=== PATIENT | female | born 1935 | race Caucasian/White ===

== ENCOUNTER → 2018-03-12 | Outpatient (CLI) | payer OTHER | LOC: BMCIMAGING 15:20 | PROVIDERS: ATTEND Family Medicine | DX: Z12.31 Encounter for screening mammogram for malignant neoplasm of breast (principal); Z85.3 Personal history of malignant neoplasm of breast; Z90.11 Acquired absence of right breast and nipple ==

== ENCOUNTER 2019-02-23 18:08 | Inpatient (IN) | payer OTHER ==
[2019-02-23] MEDS ORDERED: NS 500 ML IV ONE (18:21)
--- NOTE | 2019-02-23 18:22 | EDPHY ---
H & P Stated Complaint: painful cough for 1 month, chest hurts when coughing Time Seen by Provider: 02/23/19 18:22 HPI/ROS: HPI CHIEF COMPLAINT: Shortness of breath. HISTORY OF PRESENT ILLNESS: Patient is a 83-year-old female, she denies having any significant medical history does not take any daily medications she presents emergency room with shortness of breath, and cough x1 month. She was seen by her primary care doctor in earlier on given a Z-Mahamed for bronchitis. She completed Z-Mahamed, but not improving. She had blood work done by her primary care doctor's showed a positive D-dimer. She was referred to the emergency room for further evaluation. Patient denies any chest pain however when she takes deep breath in she has some discomfort. Also noted to be 82% on room air upon arrival to the emergency room. She is a dry cough on exam. No wheezing. Past Medical History: Breast CA Past Surgical History: mastectomy. Social History: Denies drugs alcohol tobacco Family History: Noncontributory ROS REVIEW OF SYSTEMS: 10 Systems were reviewed and negative with the exception of the elements mentioned in the history of present illness. Exam Constitutional triage nursing summary reviewed, vital signs reviewed, awake/ alert. 82% room air sat. Eyes normal conjunctivae and sclera, EOMI, PERRLA. HENT normal inspection, atraumatic, moist mucus membranes, no epistaxis, neck supple/ no meningismus, no raccoon eyes. Respiratory clear to auscultation bilaterally, normal breath sounds, no respiratory distress, no wheezing. Cardiovascular bronchitic sounding cough on exam, rate normal, regular rhythm, no murmur, no edema, distal pulses normal. Gastrointestinal soft, non-tender, no rebound, no guarding, normal bowel sounds, no distension, no pulsatile mass. Genitourinary no CVA tenderness. Musculoskeletal no midline vertebral tenderness, full range of motion, no calf swelling, no tenderness of extremities, no meningismus, good pulses, neurovascularly intact. Skin pink, warm, & dry, no rash, skin atraumatic. Neurologic awake, alert and oriented x 3, AAOx3, moves all 4 extremities equally, motor intact, sensory intact, CN II-XII intact, normal cerebellar, normal vision, normal speech. Psychiatric normal mood/affect. Heme/Lymph/Immune no lymphadenopathy. Differential Diagnosis: Differential diagnosis includes but is not limited to: ACS, atypical chest pain, pneumothorax, pneumonia, pulmonary embolism, aortic dissection, congestive heart failure, tumor, musculoskeletal pain, esophageal pain, GERD, peptic ulcer disease, pancreatitis Medical Decision Making: Plan for this patient IV establishment IV fluid bolus , DuoNeb breathing treatment, CT angiogram of the chest due to elevated D-dimer from her primary care doctor's office and hypoxia, basic labs, re-evaluate. Re-evaluation: DDIMER 1.49 today at PCP's office. EKG interpretation by me on record in [facility] system. Impression and time of EKG 1842, sinus tach 105 without any signs of acute ischemia. Troponin 0.00 CT angiogram of the chest shows no evidence of pulmonary embolism but shows diffuse ground-glass opacifications concerning for multifocal pneumonia. Plan for this patient with hypoxia and CT scan shows multifocal pneumonia IV antibiotics be given, blood culture sent. Plan for admission to the hospital. Spoke with the hospitalist service Dr. Tapia. Agrees to admit Na 127. Plan for admission for PNA, multi-focal Pna. IV azithro Iv rocephin IV fluids. Blood cultures pending Source: Patient - Personal History Current Tetanus/Diphtheria Vaccine: Unsure Current Tetanus Diphtheria and Acellular Pertussis (TDAP): Unsure - Medical/Surgical History Hx Asthma: No Hx Chronic Respiratory Disease: No Hx Diabetes: No Hx Cardiac Disease: No Hx Renal Disease: No Hx Cirrhosis: No Hx Alcoholism: No Hx HIV/AIDS: No Hx Splenectomy or Spleen Trauma: No Other PMH: Breast cancer - Social History Smoking Status: Never smoked Constitutional: Initial Vital Signs O2 Sat (%) 92 02/23/19 18:10 O2 Delivery Mode Nasal Cannula O2 (L/minute) 2 Allergies/Adverse Reactions: aspirin [Aspirin] Allergy (Verified 02/16/10 16:32) HARD TO BREATHE, GENERALIZED SWELLING Penicillins Allergy (Verified 02/16/10 16:31) Rash Sulfa (Sulfonamide Antibiotics) Allergy (Verified 02/16/10 16:31) WELTS ALL OVER! SEASONAL ALLERGIES Allergy (Mild, Uncoded 02/16/10 16:33) SNEEZING Home Medications: Medication Instructions Recorded Herbals/Supplements -Info Only 1 ea PO DAILY 08/22/15 Medical Decision Making - Data Points Laboratory Results: Laboratory Results 02/23/19 18:45 02/23/19 18:45 Medications Given: Benzonatate (Tessalon Pearles) 100 mg PO TID PRN PRN Reason: Cough,mild Stop: 08/23/19 00:40 Last Admin: 02/24/19 08:09 Dose: 100 mg Enoxaparin Sodium (Lovenox) 40 mg SC DAILY JEIMY Stop: 08/23/19 08:59 Last Admin: 02/24/19 08:24 Dose: 40 mg Magnesium Oxide (Magnesium Oxide) 400 mg PO HS JEIMY Stop: 08/22/19 22:59 Last Admin: 02/24/19 00:12 Dose: 400 mg Prednisone (Prednisone) 20 mg PO DAILY JEIMY Stop: 08/23/19 08:59 Last Admin: 02/24/19 08:09 Dose: 20 mg Discontinued Medications Albuterol/Ipratropium (Duoneb) 3 ml IH EDNOW ONE Stop: 02/23/19 18:30 Last Admin: 02/23/19 18:37 Dose: 3 ml Sodium Chloride (Ns) 500 mls @ 1,000 mls/hr IV EDNOW ONE PRN Reason: Protocol Stop: 02/23/19 18:50 Last Admin: 02/23/19 18:38 Dose: 500 mls Azithromycin 500 mg/ Sodium (Chloride) 255 mls @ 255 mls/hr IV EDNOW ONE PRN Reason: Protocol Stop: 02/23/19 21:27 Last Admin: 02/23/19 21:14 Dose: 255 mls Ceftriaxone Sodium 2 gm/ (Sodium Chloride) 50 mls @ 100 mls/hr IV EDNOW ONE PRN Reason: Protocol Stop: 02/23/19 20:57 Last Admin: 02/23/19 20:48 Dose: 50 mls Point of Care Test Results: Chemistry 02/23/19 18:50 POC Troponin I 0.00 ng/mL ng/mL (0.00-0.08) Departure - Departure Disposition: [facility] Acute Clinical Impression: Hypoxia, Hyponatremia Pneumonia Qualifiers: Pneumonia type: due to unspecified organism Laterality: bilateral Lung location : unspecified part of lung Qualified Code(s): J18.9 - Pneumonia, unspecified organism Condition: Serious
[2019-02-23] MEDS ORDERED: IPRATROPIUM/ALBUTEROL 3 ML DEYVIAL IH ONE (18:29)
[2019-02-23] MEDS ORDERED: IOPAMIDOL (ISOVUE 370) 100 ML BTL IV ONE (18:31)
[2019-02-23 18:55] LABS: PLATELET COUNT 323 10^3/uL (150-400)
[2019-02-23 19:11] LABS: INR 1.11 (0.83-1.16); PROTIME(PATIENT) 13.9 SEC (12.0-15.0)
[2019-02-23] MEDS ORDERED: AZITHROMYCIN IV 500 MG in NS 250 ML IV ONE (20:28)
[2019-02-23] MEDS ORDERED: IPRATROPIUM/ALBUTEROL 3 ML DEYVIAL IH PRN (21:28)
--- NOTE | 2019-02-23 21:48 | GHP ---
[f rep st] HISTORY AND PHYSICAL DATE OF ADMISSION: 02/23/2019 CHIEF COMPLAINT: Shortness of breath and cough. HISTORY OF PRESENT ILLNESS: This is an 83-year-old female [facility] due to increasing shortness of breath and cough for 1 month. She was treated with azithromycin for bronchitis a week ago. The course of the azithromycin finished over t weekend, but she was not better. She was started on a 2nd course of azithromycin, but has still n ot improved. She denies any fevers. She has been short of breath. Her cough is described as nonpro ductive. It hurts to take a deep breath. The patient states that in December of this year she moved fr [facility] to [place]. After the move, which she completed the end of December, she became very tir ed and began coughing. PAST MEDICAL HISTORY: Breast cancer. PAST SURGICAL HISTORY: Right mastectomy. HOME MEDICATIONS: Denies. ALLERGIES: Sulfa and aspirin. Aspirin causes swelling. SOCIAL HISTORY: She now lives in [place] but moved from [facility] in December. She denies any alcoho l, tobacco, or illicit drug use. FAMILY HISTORY: Significant for stroke in her sister and mother. REVIEW OF SYSTEMS: Comprehensive 10-point review of systems was done and is negative except for as m entioned in HPI. PHYSICAL EXAMINATION: VITAL SIGNS: Blood pressure 116/63, pulse 66, respiratory rate 20, O2 saturat ion 92% on 2 L. Was 83% on room air on initial presentation. GENERAL: In no acute distress. HEAD: Normocephalic, atraumatic. EYES: PERRLA. Sclerae anicteric. MOUTH: Moist mucous membranes. NE CK: Supple. No lymphadenopathy. CARDIOVASCULAR: S1, S2. No murmurs, rubs, clicks, gallops. No J VD. No lower extremity edema. PULMONARY: Bilateral wheeze. There is some rhonchi, especially in th e right lower lung field. Slight increased respiratory effort. ABDOMEN: Soft, nontender, nondisten ded. No guarding or rebound tenderness. Normoactive bowel sounds. EXTREMITIES: No clubbing or cya nosis. NEURO: Cranial nerves II-XII grossly intact. No focal motor or sensory deficits. SKIN: Cl ear, no rashes. DIAGNOSTICS: WBC is 12.8, hemoglobin 12.7, hematocrit 36.4, platelets 323, coags unremarkable. Sodi um 127, potassium 4.4, chloride 94, BUN 17, creatinine 0.7, glucose 119. LFTs unremarkable. CT chantal o of the chest was reviewed and was negative for PE. Showed bilateral diffuse alveolar opacities, mo re prominent in the bilateral lower lobes suggesting bilateral diffuse pneumonia. EKG: Sinus tachyc ardia, rate 105 beats per minute. No acute ischemic changes. ASSESSMENT AND PLAN: This is an 83-year-old female presenting with: 1. Acute hypoxemic respiratory failure due to below. 2. Multifocal pneumonia. Possible atypical organism. 3. Hyponatremia. Suspect syndrome of inappropriate antidiuretic hormone secretion given above. The patient appears to be euvolemic. PLAN: 1. Admit to the medical-surgical floor. 2. Will continue ceftriaxone and Zithromax that were started in the emergency department. Will send blood cultures. 3. Consider pulmonology consult given the atypical presentation of this pneumonia that seems to have been ongoing for months. 4. DuoNeb. 5. Start prednisone 20 mg daily. 6. Obtain urine sodium and monitor serum sodium to ensure it is not dropping. 7. The patient requests to be full code status. /[id number]/MODL
[2019-02-24] MEDS: MAGNESIUM OXIDE 400 MG TAB PO SCH ×2 (00:12→20:00)
[2019-02-24] MEDS: BENZONATATE 100 MG CAP PO PRN ×3 (04:06→20:03)
[2019-02-24 05:05] LABS: PLATELET COUNT 297 10^3/uL (150-400)
[2019-02-24] MEDS: predniSONE 20 MG TAB PO SCH (08:09)
[2019-02-24] MEDS: ENOXAPARIN 40 MG/0.4 ML SYR SC SCH (08:24)
[2019-02-24] MEDS ORDERED: Herbals/Supplements -Info Only PO SCH (09:00)
--- NOTE | 2019-02-24 10:52 | PDMN ---
Medical Necessity Medical necessity: [facility] M282 Pneumonia, A-2 days: 83 yo w/ increasing SOB/ cough. 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 Pt completed course of antibx as outpt for s/ sx last week w/ no improvement. Na 127. Elevated WBC. Pt requiring 3L O2 to maintain sat>90%. IV antibx, nebs, steroids for management. Meets [facility] IP criteria for PNA w/ hypoxemia - pt w/o baseline need for supplemental O2 w/ O2 sat less than 90% and failure to respond to antibiotic tx on outpt basis. Hx breast ca w/ R mastectomy.
--- NOTE | 2019-02-24 10:55 | ASMTCMCOM ---
CM Note CM Note Notes: Met with pt, she is admitted to hospital with pneumonia. She is normally very independent, no therapies ordered. Anticipate she will dc home when medically stable. Nurse aid notified CM that pt interested in talking to financial counseling about cost of abx. Pt did not discuss this with CM directly. Email sent to [facility] to reach out to pt. DC Plan: Independent Date Signed: 02/24/2019 10:54 AM Electronically Signed By:Tova Flores RN
--- NOTE | 2019-02-24 12:40 | HOSPPROG ---
Hospitalist Progress Note Assessment/Plan: 83-year-old female presents emergency room complaints of shortness of breath. States she has been feeling well for the last several weeks.. Her primary care physician had placed on antibiotics for 8 days prior to coming to the hospital. 1st encounter. Chart reviewed. # acute hypoxemic respiratory failure -presumably in the setting of pneumonia -continue supplemental oxygen # multifocal pneumonia -could potentially be atypical -respiratory PCR ordered -patient had been on antibiotic therapy for 8 days prior to admission -chest ct demonstrates multifocal pneumonia -continue Rocephin and azithromycin -consider pulmonology consult if patient does not improve # hyponatremia -in the setting of acute infection -likely prerenal -responding to hydration -urine sodium low # disposition -unclear -patient still feels terrible -continues to require supplemental oxygen -continue supportive care in the hospital setting -consider pulmonology or Infectious Disease consult if not improving Subjective: Still feeling sick. No pain. Very tired. Objective: Vital Signs Temp Pulse Resp BP Pulse Ox 37.4 C 77 16 111/66 91 L 02/24/19 12:27 02/24/19 12:27 02/24/19 12:27 02/24/19 12:27 02/24/19 12:27 Laboratory Results 02/24/19 04:30 02/24/19 04:30 02/23/19 02/24/19 02/25/19 05:59 05:59 05:59 Intake Total 900 Balance 900 PT 13.9 SEC (12.0-15.0) 02/23/19 18:45 INR 1.11 (0.83-1.16) 02/23/19 18:45 - Physical Exam Constitutional: appears nourished, not in pain, No obese Eyes: PERRL, anicteric sclera, EOMI Ears, Nose, Mouth, Throat: moist mucous membranes, hearing normal, ears appear normal Cardiovascular: regular rate and rhythym, No JVD, No edema Respiratory: no respiratory distress, no rales or rhonchi, reduced air movement Gastrointestinal: normoactive bowel sounds, No tenderness, No ascites Skin: warm, normal color, No mottled Musculoskeletal: normal joint ROM, no joint effusions, generalized weakness Neurologic: AAOx3 Psychiatric: interacting appropriately, not anxious, not encephalopathic ICD10 Worksheet Patient Problems: Problems Problem Status Onset Malignant tumor of breast Acute Hypoxia Acute Pneumonia Acute Hyponatremia Acute
[2019-02-24] MEDS: AZITHROMYCIN IV 500 MG in D5W 250 ML IV SCH (21:12)
--- NOTE | 2019-02-25 08:40 | HOSPPROG ---
Hospitalist Progress Note Assessment/Plan: 83-year-old female presents emergency room complaints of shortness of breath. States she has been feeling well for the last several weeks.. Her primary care physician had placed on antibiotics for 8 days prior to coming to the hospital. 1st encounter. Chart reviewed. # acute hypoxemic respiratory failure -patient is on 2 L of oxygen -CTA is negative for a PE -she is a persistent cough, possibly from postnasal drip, will try Zyrtec and Flonase -also will do a trial of a PPI to see if this helps -patient is discouraged because she has been feeling poorly for over a month, will as pulmonology for any further input # multifocal pneumonia -blood cultures show no growth -CT of the chest demonstrated multifocal pneumonia -patient is on Rocephin and azithromycin -she was on antibiotic therapy a days prior to this admission -checked a procalcitonin level which is low # history of C diff approximately 10 years ago # constipation -added bowel protocol # hyponatremia -in the setting of acute infection -likely prerenal -responding to hydration -urine sodium low # disposition -pending Subjective: Katlin says she feels 'terrible'. c/o cough, post nasal drip, constipation. Objective: Vital Signs Temp Pulse Resp BP Pulse Ox 36.5 C 71 16 101/59 L 91 L 02/25/19 07:35 02/25/19 07:35 02/25/19 07:35 02/25/19 07:35 02/25/19 07:35 Microbiology 02/24/19 11:10 Respiratory Panel (PCR) - Final Nasal, Sinus - Swab No Organism Detected By Pcr Laboratory Results 02/24/19 04:30 02/24/19 04:30 02/24/19 02/25/19 02/26/19 05:59 05:59 05:59 Intake Total 900 Balance 900 PT 13.9 SEC (12.0-15.0) 02/23/19 18:45 INR 1.11 (0.83-1.16) 02/23/19 18:45 - Physical Exam Constitutional: no apparent distress, appears nourished Eyes: PERRL Ears, Nose, Mouth, Throat: hearing normal Cardiovascular: regular rate and rhythym Respiratory: no respiratory distress, no rales or rhonchi Gastrointestinal: normoactive bowel sounds Skin: warm Neurologic: AAOx3 Psychiatric: interacting appropriately, anxious ICD10 Worksheet Patient Problems: Problems Problem Status Onset Hyponatremia Acute Hypoxia Acute Pneumonia Acute Malignant tumor of breast Acute
[2019-02-25] MEDS: BENZONATATE 100 MG CAP PO PRN ×2 (09:15→20:22)
[2019-02-25] MEDS: predniSONE 20 MG TAB PO SCH (09:15)
[2019-02-25] MEDS: ENOXAPARIN 40 MG/0.4 ML SYR SC SCH (09:15)
[2019-02-25] MEDS ORDERED: MAGNESIUM HYDROXIDE 30 ML UDCUP PO PRN (09:56)
[2019-02-25] MEDS ORDERED: BISACODYL 10 MG SUPP PR PRN (09:56)
[2019-02-25] MEDS ORDERED: LACTULOSE 20 GM/30 ML UDCUP PO PRN (09:56)
[2019-02-25] MEDS: FLUTICASONE NASAL 120 SPRAYS/16 GM MDI EACHNARE SCH (11:22)
[2019-02-25] MEDS: POLYETHYLENE GLYCOL 3350 17 GM PKT PO SCH (11:22)
[2019-02-25] MEDS: SENNOSIDES/DOCUSATE SODIUM TAB PO SCH ×2 (11:26→20:07)
[2019-02-25] MEDS: CETIRIZINE 10 MG TAB PO SCH (11:26)
[2019-02-25] MEDS: PANTOPRAZOLE SODIUM 40 MG TAB PO SCH (11:26)
--- NOTE | 2019-02-25 18:04 | GCON ---
[f rep st] CONSULTATION PULMONARY CONSULTATION DATE OF CONSULTATION: 02/25/2019 REFERRING PHYSICIAN: Loreta Bowden NP REASON FOR REFERRAL: Evaluation and management of pneumonia. HISTORY: The patient is an 83-year-old woman who presented to the emergency department with pneumoni a, cough, and dyspnea. She reports that she was in her usual state of good health when she noticed q uite a bit of fatigue starting in early January. At the time, she was involved in a fairly extensive m ove from [facility] to [facility]. She thinks that around the last week or so of January, she started to develop a cough and was feeling a bit short of breath. She spoke with her primary care doctor, Dr. Yeung, who prescribed azithromycin. She took that and then took a 2nd course. She was still having s ome cough, so he referred her for a chest x-ray on the day of admission 2 days ago. This was read as a pneumonia, so she was told to go to the emergency department. She was admitted and started on cef triaxone and azithromycin. Her fatigue has waxed and waned a bit since hospitalization, but was bett er yesterday. She continues to have the cough, but it is fairly mild. It has been nonproductive all along. There have been no associated fevers or chills. PAST MEDICAL HISTORY: Breast cancer. MEDICATIONS: [id number]. SOCIAL HISTORY: The patient recently moved from [facility] to [facility]. She denies alcohol or tobac co. She does not have any exposure to any unusual animals or animal droppings, or any other usual du st or fumes. FAMILY HISTORY: Unremarkable. REVIEW OF SYSTEMS: A 10-point review of systems adds nothing to the History of Present Illness. PHYSICAL EXAMINATION: GENERAL: The patient is awake and alert. She is in no acute distress. VITAL SIGNS: Blood pressure is 132/96. Heart rate is 79. Oxygen saturations are 90% on room air. HEENT : Normocephalic and atraumatic. No icterus. NECK: No JVD. Trachea is midline. CHEST: She has s ome rales in the bases. She had minimal cough during the interview. ABDOMEN: Soft, nontender. [place] el sounds are present. CARDIAC: Regular rate and rhythm without murmur. EXTREMITIES: No clubbing, cyanosis, or edema. NEURO: The patient is awake and alert. She has no gross motor or sensory defi cits. LABORATORY: A white blood count was 12.8 at admission, 7.5 on repeat. Hemoglobin is 11.5. Chemistr y group is remarkable for sodium of 131, up from 127. Creatinine is 0.5. A TSH is 5.5. A chest x-r ay shows some diffuse mild pneumonia. A CT scan of the chest shows diffuse patchy bilateral alveolar opacities, most prominent in the lower lobes. Images reviewed by me. A PCR panel is negative. A b lood culture is negative. ASSESSMENT: Community-acquired pneumonia. The patient has had symptoms for about 2-3 weeks which pe rsist despite azithromycin. Her chest x-ray shows significant bilateral infiltrates, most consistent with pneumonia. A respiratory panel is negative. There is no history to suggest a hypersensitivity pneumonitis or other causes. She is on appropriate empiric antibiotics for less than 48 hours. RECOMMENDATIONS: Continue current empiric antibiotics. She could probably be discharged home tomorr ow if she is doing well on a single agent such as Levaquin. She could then follow up with me or Dr. Yeung with a chest x-ray in 1-2 weeks. /[id number]/MODL
[2019-02-25] MEDS: MAGNESIUM OXIDE 400 MG TAB PO SCH (20:07)
[2019-02-25] MEDS: AZITHROMYCIN IV 500 MG in D5W 250 ML IV SCH (21:18)
--- NOTE | 2019-02-26 08:23 | HOSPPROG ---
Hospitalist Progress Note Assessment/Plan: 83-year-old female presents emergency room complaints of shortness of breath. States she has been feeling well for the last several weeks.. Her primary care physician had placed on antibiotics for 8 days prior to coming to the hospital. # acute hypoxemic respiratory failure -patient is on 1 L of oxygen -CTA is negative for a PE # multifocal pneumonia -blood cultures show no growth -patient is on Rocephin and azithromycin -she was on antibiotic therapy a days prior to this admission # history of C diff approximately 10 years ago # constipation -added bowel protocol # hyponatremia -improved #elevated TSH -should get rechecked in 6 weeks w PCP # disposition -possibly dc today, told Katlin we could place her on oral abx at or.She wants to see if she is feeling well enough after walking around and getting breakfast. Will need f/u with her PCP or Dr Lu for a f/u chest x ray. Subjective: Katlin is not sure this morning if she is feeling well or not Objective: Vital Signs Temp Pulse Resp BP Pulse Ox 36.7 C 73 18 98/55 L 93 02/25/19 23:27 02/25/19 23:27 02/25/19 23:27 02/25/19 23:27 02/25/19 23:27 Laboratory Results 02/24/19 04:30 02/24/19 04:30 02/25/19 02/26/19 02/27/19 05:59 05:59 05:59 Intake Total 480 Balance 480 PT 13.9 SEC (12.0-15.0) 02/23/19 18:45 INR 1.11 (0.83-1.16) 02/23/19 18:45 - Physical Exam Constitutional: no apparent distress, appears nourished, not in pain Eyes: PERRL Ears, Nose, Mouth, Throat: hearing normal Cardiovascular: regular rate and rhythym, no murmur, rub, or gallop Respiratory: no respiratory distress, other (few rhales but otherwise clear) Skin: warm Neurologic: AAOx3 Psychiatric: interacting appropriately ICD10 Worksheet Patient Problems: Problems Problem Status Onset Hyponatremia Acute Hypoxia Acute Pneumonia Acute Malignant tumor of breast Acute
[2019-02-26] MEDS: SENNOSIDES/DOCUSATE SODIUM TAB PO SCH ×2 (10:11→20:32)
[2019-02-26] MEDS: CETIRIZINE 10 MG TAB PO SCH (10:12)
[2019-02-26] MEDS: PANTOPRAZOLE SODIUM 40 MG TAB PO SCH (10:12)
[2019-02-26] MEDS: BENZONATATE 100 MG CAP PO PRN ×2 (10:12→20:33)
[2019-02-26] MEDS: POLYETHYLENE GLYCOL 3350 17 GM PKT PO SCH (10:12)
[2019-02-26] MEDS: predniSONE 20 MG TAB PO SCH (10:12)
[2019-02-26] MEDS: ENOXAPARIN 40 MG/0.4 ML SYR SC SCH (10:13)
[2019-02-26] MEDS: FLUTICASONE NASAL 120 SPRAYS/16 GM MDI EACHNARE SCH (10:28)
--- NOTE | 2019-02-26 13:50 | ASMTCMCOM ---
THERESA Note CM Note Notes: Met with pt in her room. She would prefer not to go home today but is okay with going home tomorrow. THERESA texted Loreta Bowden NP to advise. When she does discharge, she plans to go to son [id number] Abigail's home to recover before going to her own home. They will drive her from the hospital. No further needs at this time. THERESA D/C plan: Independent to son's home Date Signed: 02/26/2019 01:49 PM Electronically Signed By:Mally Fairbanks
--- NOTE | 2019-02-26 14:00 | PDINTPN ---
Community Support Specialist Progress Note Assessment/Plan: Assessment: CAP: Clinically improved, with decreased oxygen needs, although she feels about the same as she did yesterday. Part of this can be attributed to poor sleep in the hospital. Was on CTX, changed to Levofloxacin. Plan: OK to discharge home +/- O2, complete 7 days of antibiotics. Taper off prednisone in the next few days. Follow-up with me or PCP next week with a CXR. 02/26/19 14:01 02/26/19 14:01 Subjective: Cough is about the same. Feels tired, didn't sleep well last night due to IV issues. Objective: Vital Signs Temp Pulse Resp BP Pulse Ox 36.8 C 86 16 102/65 92 02/26/19 11:53 02/26/19 11:53 02/26/19 11:53 02/26/19 11:53 02/26/19 11:53 Laboratory Results 02/24/19 04:30 02/24/19 04:30 02/25/19 02/26/19 02/27/19 05:59 05:59 05:59 Intake Total 480 Balance 480 PT 13.9 SEC (12.0-15.0) 02/23/19 18:45 INR 1.11 (0.83-1.16) 02/23/19 18:45 Physical Exam - Physical Exam General Appearance: alert EENT: normal ENT inspection Neck: normal inspection Respiratory: lungs clear, normal breath sounds Cardiac/Chest: regular rate, rhythm, No edema Abdomen: normal bowel sounds, non-tender Skin: normal color, warm/dry Extremities: normal inspection Neuro/Psych: alert, normal mood/affect, oriented x 3 ICD10 Worksheet Patient Problems: Problems Problem Status Onset Hyponatremia Acute Hypoxia Acute Pneumonia Acute Malignant tumor of breast Acute
[2019-02-26] MEDS: MAGNESIUM OXIDE 400 MG TAB PO SCH (20:32)
[2019-02-27 07:55] VITALS: BP 129/81
[2019-02-27] MEDS: predniSONE 20 MG TAB PO SCH (08:31)
[2019-02-27] MEDS: SENNOSIDES/DOCUSATE SODIUM TAB PO SCH (08:31)
[2019-02-27] MEDS: PANTOPRAZOLE SODIUM 40 MG TAB PO SCH (08:31)
[2019-02-27] MEDS: POLYETHYLENE GLYCOL 3350 17 GM PKT PO SCH (08:31)
[2019-02-27] MEDS: CETIRIZINE 10 MG TAB PO SCH (08:31)
[2019-02-27] MEDS: ENOXAPARIN 40 MG/0.4 ML SYR SC SCH (08:32)
[2019-02-27] MEDS: FLUTICASONE NASAL 120 SPRAYS/16 GM MDI EACHNARE SCH (08:32)
[2019-02-27] MEDS ORDERED: GUAIFENESIN/DM 10 ML UDCUP PO PRN (08:47)
--- NOTE | 2019-02-27 09:18 | ASDISCHSUM ---
Discharge Information Plan Status:Home with No Needs Medically Cleared to Leave: Discharge Date: D/C Disposition: ADT D/C Disposition:Home, Routine, Self-Care Projected Discharge Date: Transportation at D/C: Discharge Delay Reason: Follow-Up Date: Discharge Slot: Final Diagnosis: Placement Information Patient Contact Information Contact Name:KAROLINA Relationship:Son Address:[facility] [address] [address] City:[place] Alternate Phone: State/Zip Code:[place] [address] Email: Financial Information Financial Class:Medicare Advantage Plans Primary Plan Desc:UNITED [employer] ADVANTAGE PLANS Primary Plan Number:[id number] Secondary Plan Desc: Secondary Plan Number: Assessment Information LACE LACE Length of stay for Answers: 4-6 days current admission Acuity / Level of Answers: Yes Care: Did the patient have an inpatient admission? Comorbidities - select Answers: Other Notes: Hx of breast cancer all that apply # of Emergency department Answers: 1-2 visits in the last 6 months Score: 9 Date Signed: 02/27/2019 09:17 AM Electronically Signed By:Mally Fairbanks [facility] Progress Note CM Note CM Note Notes: Met with pt, she is admitted to hospital with pneumonia. She is normally very independent, no therapies ordered. Anticipate she will dc home when medically stable. Nurse aid notified CM that pt interested in talking to financial counseling about cost of abx. Pt did not discuss this with CM directly. Email sent to to reach out to pt. DC Plan: Independent Date Signed: 02/24/2019 10:54 AM Electronically Signed By:Tova Flores RN [facility] THERESA Progress Note CM Note THERESA Note Notes: Met with pt in her room. She would prefer not to go home today but is okay with going home tomorrow. THERESA texted Loreta Bowden NP to advise. When she does discharge, she plans to go to son Yusuf/[id number]-ekm Abigail's home to recover before going to her own home. They will drive her from the hospital. No further needs at this time. THERESA D/C plan: Independent to son's home Date Signed: 02/26/2019 01:49 PM Electronically Signed By:Mally Fairbanks Intervention Information Intervention Type:*Incorrect Registration Date of Service:02/24/2019 09:33 AM Patient Type:Observation Staff Member:Deanna Ambrosio Hours: Discipline: Severity: Comment:
--- NOTE | 2019-02-27 09:20 | ASMTDCNOTE ---
Case Management Discharge Discharge Order Complete? Answers: Yes Patient to Obtain Answers: Independently Medications Transportation Arranged Answers: Family/Friends Family Notified Answers: Yes Notes: Pt called her son for a ride Discharge Comments Notes: Pt is being discharged independent to home today. Her son Yusuf or [id number] Abigail will pick her up and take her to their home to finish recovering before she returns to her own home. No further needs identified at this time. Date Signed: 02/27/2019 09:20 AM Electronically Signed By:Mally Fairbanks
[2019-02-27] MEDS: BENZONATATE 100 MG CAP PO PRN (10:55)
--- NOTE | 2019-02-27 17:41 | GDS ---
[f rep st] DISCHARGE SUMMARY DISCHARGE DIAGNOSES: 1. Atypical pneumonia. 2. Acute respiratory failure. HISTORY: The patient is an 83-year-old female, appearing much younger than her stated age, who has b een having a few weeks of cough. She took a couple courses of outpatient azithromycin and failed to improve so presented to the emergency room. D-dimer was positive, so she had a CT angiogram of the c hest and was negative for PE. It did show significant bilateral infiltrates consistent with pneumoni a. Pulmonary Medicine was consulted, as there was concern for a possible noninfectious etiology give n the prolonged time course and atypical disease course. Dr. Lu saw her and did think this was an atypical infection and recommended switching her on to Levaquin. She was also empirically started o n prednisone which I will rapidly taper off. She should have a followup chest x-ray in 1 to 2 weeks post discharge. DISCHARGE MEDICATIONS: Please see computerized record for full detailed list. New medications: 1. Levaquin 750 mg every other day to complete 7 days of therapy. 2. Prednisone 20 mg p.o. daily for 2 more days then off. ADDITIONAL DISCHARGE INSTRUCTIONS: Follow up chest x-ray with Dr. Yeung or Dr. Lu in 1 to 2 weeks. Greater 30 minutes' time spent arranging this discharge. Patient was seen and examined by me on the day of discharge. /[id number]/MODL
== END 2019-02-27 13:15 | disposition home or self-care (01) | DRG 193 ==
LOC: OBSVTOIN 21:29 → F3E 22:22
PROVIDERS: ADMIT Family Medicine; ATTEND Internal Medicine
DX: J18.9 Pneumonia, unspecified organism (principal); J96.01 Acute respiratory failure with hypoxia; E87.1 Hypo-osmolality and hyponatremia; Z85.3 Personal history of malignant neoplasm of breast; Z90.11 Acquired absence of right breast and nipple
CPT/HCPCS: 84484-ER; 92610-GN; J0456; J0696; J1650; J7512; Q9967

== ENCOUNTER → 2019-02-23 | Outpatient (CLI) | payer OTHER ==
[~2019-02-23] MED LIST: IOPAMIDOL (ISOVUE 370) 100 ML BTL IV ONE
== END ==
LOC: FIMAGING 15:46
PROVIDERS: ATTEND Family Medicine
DX: R05 Cough (principal); Z85.3 Personal history of malignant neoplasm of breast
CPT/HCPCS: 71046; Q9967

== ENCOUNTER 2019-03-04 22:41 | Inpatient (IN) | payer OTHER | END 2019-03-08 16:41 | LOC: F3E 03-05 00:16 ==

== ENCOUNTER 2019-03-16 19:49 | Inpatient (IN) | payer OTHER ==
--- NOTE | 2019-03-16 19:52 | EDPHY ---
HPI/HX/ROS/PE/MDM Narrative: CHIEF COMPLAINT: Weakness HPI: This patient is an 83-year-old female with past medical history including breast cancer, anemia, SIADH. She has two recent admissions for pneumonia, discharged 03/08/19 to [facility] for rehabilitation. Her antibiotics and steroid therapies have been discontinued as her lung disease was ultimately thought to be an inflammatory rather than an infectious process. She was to follow up with pulmonology and infectious disease. Today, she returned home from rehab, but about 4-5 hours after getting home, she began feeling poorly with weakness and a productive cough. She arrives via EMS for further evaluation. Per EMS report, her SpO2 was 86% on room air. On my exam, the patient begins by saying "Do I have to tell the story again?" She states that she feels generally weak with a worsened cough. She denies chest pain or fever. She denies fall or injury. REVIEW OF SYSTEMS: A comprehensive 10 system review of systems is otherwise negative aside from elements mentioned in the history of present illness and medical decision making. PMH: Breast cancer s/p mastectomy. Anemia. SIADH. Pneumonia. SOCIAL HISTORY: Lives in [place]. Retired. Discharged today from [facility] rehabilitation. PHYSICAL EXAM: General:Patient is alert, in no acute distress. ENT:Eyes are normal to inspection. ENT inspection normal. Neck: Normal inspection. Full range of motion. Respiratory:No respiratory distress. Breath sounds normal bilaterally. Cardiovascular: Regular rate and rhythm. Strong peripheral pulses. Normal cap refill. Abdomen:The abdomen is nontender to palpation. There are no peritoneal signs. There are normal bowel sounds. Back: Normal to inspection. No tenderness to palpation. Skin: Normal color. No rash. Warm and dry. Extremities: Normal appearance. Full range of motion. Neuro: Oriented x3. Normal motor function. Normal sensory function. ED Course: 83 y/o female presents with weakness and productive cough. She has two recent admissions for pneumonia vs. possible interstitial fibrosis, discharged home from rehab today. Plan for chest x-ray, labs including CBC, chemistries. Reviewed laboratory studies. These are notable for elevated WBC of 12,000 and hyponatremia, sodium 130. CXR today is largely unchanged from prior. 21:40 SpO2 84% on room air 21:[address] Parsons, hospitalist. She accepts admission for hypoxemia. - Data Points Imaging Results: Imaging Impressions Chest X-Ray 03/16/19 19:59 Impression: Similar appearing patchy bilateral airspace opacities and coarse interstitial markings. Imaging: I viewed and interpreted images myself Laboratory Results: Laboratory Results 03/16/19 21:00 03/16/19 21:00 03/16/19 03/16/19 21:00 21:00 WBC 12.45 10^3/uL H 10^3/uL (3.80-9.50) RBC 4.13 10^6/uL L 10^6/uL (4.18-5.33) Hgb 12.6 g/dL g/dL (12.6-16.3) Hct 37.1 % L % (38.0-47.0) MCV 89.8 fL fL (81.5-99.8) MCH 30.5 pg pg (27.9-34.1) MCHC 34.0 g/dL g/dL (32.4-36.7) RDW 14.1 % % (11.5-15.2) Plt Count 244 10^3/uL 10^3/uL (150-400) MPV 8.3 fL L fL (8.7-11.7) Neut % (Auto) 93.9 % H % (39.3-74.2) Lymph % (Auto) 4.0 % L % (15.0-45.0) [place] % (Auto) 1.0 % L % (4.5-13.0) Eos % (Auto) 0.6 % % (0.6-7.6) Baso % (Auto) 0.1 % L % (0.3-1.7) Nucleat RBC Rel Count 0.0 % % (0.0-0.2) Absolute Neuts (auto) 11.69 10^3/uL H 10^3/uL (1.70-6.50) Absolute Lymphs (auto) 0.50 10^3/uL L 10^3/uL (1.00-3.00) Absolute Monos (auto) 0.12 10^3/uL L 10^3/uL (0.30-0.80) Absolute Eos (auto) 0.07 10^3/uL 10^3/uL (0.03-0.40) Absolute Basos (auto) 0.01 10^3/uL L 10^3/uL (0.02-0.10) Absolute Nucleated RBC 0.00 10^3/uL 10^3/uL (0-0.01) Immature Gran % 0.4 % % (0.0-1.1) Immature Gran # 0.05 10^3/uL 10^3/uL (0.00-0.10) RBC/WBC/PLT Morphology TNP Platelet Estimate TNP Sodium 130 mEq/L L mEq/L (135-145) Potassium 4.3 mEq/L mEq/L (3.5-5.2) Chloride 101 mEq/L mEq/L (97-110) Carbon Dioxide 21 mEq/l L mEq/l (22-31) Anion Gap 8 mEq/L mEq/L (6-14) BUN 12 mg/dL mg/dL (7-23) Creatinine 0.6 mg/dL mg/dL (0.6-1.0) Estimated GFR > 60 Glucose 90 mg/dL mg/dL (70-100) Calcium 9.0 mg/dL mg/dL (8.5-10.4) General Initial Vital Signs: Initial Vital Signs Temperature (C) 36.8 C 03/16/19 19:55 Heart Rate 88 03/16/19 19:55 Respiratory Rate 16 03/16/19 19:55 Blood Pressure 115/64 03/16/19 19:55 O2 Sat (%) 83 L 03/16/19 19:55 O2 Delivery Mode Nasal Cannula O2 (L/minute) 3 Allergies/Adverse Reactions: aspirin [Aspirin] Allergy (Verified 03/16/19 19:58) HARD TO BREATHE, GENERALIZED SWELLING Penicillins Allergy (Verified 03/16/19 19:58) Rash DECADES AGO Sulfa (Sulfonamide Antibiotics) Allergy (Verified 03/16/19 19:58) WELTS ALL OVER! 20 yrs ago SEASONAL ALLERGIES Allergy (Mild, Uncoded 03/16/19 19:58) SNEEZING Home Medications: Medication Instructions Recorded Herbals/Supplements -Info Only 1 ea PO DAILY 08/22/15 Acetaminophen [Tylenol 325mg (*)] 650 mg PO Q4HRS PRN tab 03/08/19 Polyethylene Glycol 3350 [Miralax 17 gm PO DAILY pkt 05/20/19 17 gm (*)] Sennosides/Docusate Sodium 1 - 2 tab PO BID tab 03/08/19 [Senokot-S] Departure - Departure Referrals: ADRY POWERS [Medical Doctor] - As per Instructions Report Scribed for: Hugh Vu Report Scribed by: Clarice Leon Date of Report: 03/16/19 Time of Report: 21:31 Physician Review and Approval Statement: Portions of this note were transcribed by an ED scribe. I personally performed the history, physical exam, and medical decision making; and confirm the accuracy of the information in the transcribed note.
[2019-03-16 21:13] LABS: PLATELET COUNT 244 10^3/uL (150-400)
[2019-03-16] MEDS ORDERED: ONDANSETRON DISINTEGRATING 4 MG TAB PO PRN (22:20)
[2019-03-16] MEDS ORDERED: ACETAMINOPHEN 325 MG TAB PO PRN (22:20)
[2019-03-16] MEDS ORDERED: ONDANSETRON 4 MG/2 ML VIAL IVP PRN (22:20)
[2019-03-16] MEDS ORDERED: ALBUTEROL 3 ML DEYVIAL IH PRN (22:20)
--- NOTE | 2019-03-16 22:48 | PDGENHP ---
History and Physical - Chief Complaint Shortness of breath cough - History of Present Illness Source-patient provides a limited amount of history despite prompting. She is a little agitated and upset that she has to provide history. Patient is familiar to me from her last admission earlier this month. EMR was reviewed and case discussed with accepting hospitalist. HPI - this is an 83-year-old female past medical history significant for remote breast cancer status post mastectomy, anemia, SIADH and more recently multiple hospitalizations for was initially thought to be a pneumonia and associated hypoxia. Patient did not have significant improvement in her respiratory symptoms despite multiple courses of antibiotics. During her 2nd hospitalization infectious Disease and pulmonology were consulted. It was suspected that patient had a inflammatory process more so than it infectious process. She had respiratory PCR and sputum cultures that were all negative including for mycobacterium. It was recommended that patient not be given any steroids or antibiotics and to be monitored. She subsequently discharged to [facility]. Per patient's report she was not continued on any oxygen while at [facility]. She was apparently doing quite well was discharged earlier today. She returned home to her [facility] where she lives with her son. Who she was there for approximately 4-5 hours and reports that she continued to feel increasingly weak with worsening productive cough. Currently patient is complaining of some low back aching. Patient denies any complaints of aspiration or choking. History Information - Allergies/Home Medication List Allergies/Adverse Reactions: aspirin [Aspirin] Allergy (Verified 03/16/19 19:58) HARD TO BREATHE, GENERALIZED SWELLING Penicillins Allergy (Verified 03/16/19 19:58) Rash DECADES AGO Sulfa (Sulfonamide Antibiotics) Allergy (Verified 03/16/19 19:58) WELTS ALL OVER! 20 yrs ago SEASONAL ALLERGIES Allergy (Mild, Uncoded 03/16/19 19:58) SNEEZING Home Medications: Herbals/Supplements -Info Only 1 ea PO DAILY 08/22/15 [Last Taken 08/25/15] I have personally reviewed and updated: family history, medical history, social history, surgical history - Past Medical History Additional medical history: Breast cancer status post mastectomy. Patient did not receive any chemotherapy or radiation therapy. Anemia, SIADH. - Surgical History Additional surgical history: Right mastectomy - Family History Additional family history: Mother and sister with history CVA. No known lung disease. - Social History Smoking Status: Never smoked Alcohol Use: None Drug Use: None Additional social history: Patient currently lives with her son and [place]. She denies any requirement for walker or cane at home. She does not have any oxygen at home. Cor status-DNR DNI. Review of Systems Review of Systems: ROS: 10pt was reviewed & negative except for what was stated in HPI & below Constitutional: Reports: malaise, weakness (Generalized). Denies: chills, fever EENMT: Reports: no symptoms Cardiac: Reports: no symptoms Respiratory: Reports: cough, shortness of breath Gastrointestinal: Reports: no symptoms Genitourinary: Reports: no symptoms. Denies: dysuria, hematuria Muscolosketal: Reports: back pain Skin: Reports: no symptoms Neurological: Reports: no symptoms, other (Light sensitivity) Hematologic/Lymphatic: Reports: anemia Physical Exam Physical Exam: Selected Entries 03/16/19 19:55 Blood Pressure Automatic Method Heart Rate 88 Respiratory 16 Rate O2 Sat (%) 83 L Temperature (C) 36.8 C Blood Pressure 115/64 Mean Arterial 81 Pressure (MAP) O2 Delivery Room Air Mode Temperature Oral Source Temp Pulse Resp BP Pulse Ox 36.8 C 90 18 120/57 L 94 03/16/19 19:55 03/16/19 22:32 03/16/19 22:32 03/16/19 22:32 03/16/19 22:32 O2 (L/minute) 3 Constitutional: no apparent distress, chronically ill appearing, other (NAD. Patient is lying quietly in bed when I enter the room. Soon as I wake her up she starts intermittently complaining of multiple dissatisfactiond including feeling thirsty, wanting her shoes off, wantng to sit up, wanting to go upstairs to her room. ) Eyes: anicteric sclera, other (Limited ocular exam is patient refuses to keep her eyes on covered with the light on.), No scleral injection Ears, Nose, Mouth, Throat: other (No nasal discharge.), No poor dentition, No dry mucous membranes Cardiovascular: regular rate and rhythym, no murmur, rub, or gallop, pulses symmetric bilaterally, No edema Peripheral Pulses: 2+: dorsalis-pedis (R), dorsalis-pedis (L) Respiratory: no respiratory distress, no rales or rhonchi, reduced air movement (Diminished air movement decreased inspiratory effort.), inspiratory crackles ( Bibasilar inspiratory crackles), No expiratory wheeze Gastrointestinal: normoactive bowel sounds, soft, non-tender abdomen, no palpable masses, No distension Genitourinary: no bladder tenderness, No park in urethra Skin: warm, normal color, no rashes or abrasions Musculoskeletal: generalized weakness (Generalized deconditioning. No focal deficits. Patient is able to sit up independently roll in the sidewall extremities.) Neurologic: AAOx3, other (Grossly nonfocal but limited exam due to patient's cooperation.), No facial droop Psychiatric: anxious, agitated, No suicidal ideation, No poor insight, No poor judgement, No poor memory Lab Data & Imaging Review 03/16/19 21:00 03/16/19 21:00 WBC 12.45 10^3/uL (3.80-9.50) H 03/16/19 21:00 RBC 4.13 10^6/uL (4.18-5.33) L 03/16/19 21:00 Hgb 12.6 g/dL (12.6-16.3) 03/16/19 21:00 Hct 37.1 % (38.0-47.0) L 03/16/19 21:00 MCV 89.8 fL (81.5-99.8) 03/16/19 21:00 MCH 30.5 pg (27.9-34.1) 03/16/19 21:00 MCHC 34.0 g/dL (32.4-36.7) 03/16/19 21:00 RDW 14.1 % (11.5-15.2) 03/16/19 21:00 Plt Count 244 10^3/uL (150-400) 03/16/19 21:00 MPV 8.3 fL (8.7-11.7) L 03/16/19 21:00 Neut % (Auto) 93.9 % (39.3-74.2) H 03/16/19 21:00 Lymph % (Auto) 4.0 % (15.0-45.0) L 03/16/19 21:00 [place] % (Auto) 1.0 % (4.5-13.0) L 03/16/19 21:00 Eos % (Auto) 0.6 % (0.6-7.6) 03/16/19 21:00 Baso % (Auto) 0.1 % (0.3-1.7) L 03/16/19 21:00 Nucleat RBC Rel Count 0.0 % (0.0-0.2) 03/16/19 21:00 Absolute Neuts (auto) 11.69 10^3/uL (1.70-6.50) H 03/16/19 21:00 Absolute Lymphs (auto) 0.50 10^3/uL (1.00-3.00) L 03/16/19 21:00 Absolute Monos (auto) 0.12 10^3/uL (0.30-0.80) L 03/16/19 21:00 Absolute Eos (auto) 0.07 10^3/uL (0.03-0.40) 03/16/19 21:00 Absolute Basos (auto) 0.01 10^3/uL (0.02-0.10) L 03/16/19 21:00 Absolute Nucleated RBC 0.00 10^3/uL (0-0.01) 03/16/19 21:00 Immature Gran % 0.4 % (0.0-1.1) 03/16/19 21:00 Immature Gran # 0.05 10^3/uL (0.00-0.10) 03/16/19 21:00 RBC/WBC/PLT Morphology TNP 03/16/19 21:00 Platelet Estimate TNP 03/16/19 21:00 Sodium 130 mEq/L (135-145) L 03/16/19 21:00 Potassium 4.3 mEq/L (3.5-5.2) 03/16/19 21:00 Chloride 101 mEq/L (97-110) 03/16/19 21:00 Carbon Dioxide 21 mEq/l (22-31) L 03/16/19 21:00 Anion Gap 8 mEq/L (6-14) 03/16/19 21:00 BUN 12 mg/dL (7-23) 03/16/19 21:00 Creatinine 0.6 mg/dL (0.6-1.0) 03/16/19 21:00 Estimated GFR > 60 03/16/19 21:00 Glucose 90 mg/dL (70-100) 03/16/19 21:00 Calcium 9.0 mg/dL (8.5-10.4) 03/16/19 21:00 Imaging Review: Chest 2 View History: cough. Comparison: March 06, 2019, March 04, 2019. Findings: Patchy airspace opacities are seen which appear unchanged when compared to the prior study. Coarsened interstitial markings are also seen. The cardiac silhouette and pulmonary vascularity are within normal limits. Degenerative changes of the thoracic spine are evident. Impression: Similar appearing patchy bilateral airspace opacities and coarse interstitial markings. Dictated By: Peter Maldonado MD Visualized and Interpreted Chest x-ray results: Yes Assessment & Plan Assessment: This is an 83-year-old female past medical history significant for remote breast cancer status post mastectomy, anemia, SIADH and more recently multiple hospitalizations for was initially thought to be a pneumonia and associated hypoxia. Patient did not have significant improvement in her respiratory symptoms despite multiple courses of antibiotics. hypoxia - patient reports she was not discharged on any oxygen. She also notes that at the retirement she did not receive any supplemental oxygen recently before returning home in [place]. O2 sats have significantly improved with 3-4 L supplemental oxygen. Hold off on any steroids or antibiotics at this time as cxr appears relatively unchanged from last hospital stay. Patient with a tachycardia or complaints of chest pain. Lower suspicion for PE. Prophylactic Lovenox and SCDs ordered. inflammatory lung disease vs pna - chest x-ray remains unchanged. Patient is afebrile. She has a mild leukocytosis. Respiratory status improved with supplemental oxygen will which will continue overnight. Hold additional antibiotics. Additional discussion with pulmonology in the morning. SIADH - Sodium 130 close to baseline. hold on IVF. patient is requesting water. will monitor am bmp. chronic anemia - with near normal hh at this time. monitor cbc. continue with ppx lovenox. hx breast ca - s/p mastectomy FEN - SLIV. diet as tolerated. monitor electrolytes with bmp. PPX - SCDs. lovenox. COR - DNR/DNI. Dispo - patient admitted observation status on med surge for continued oxygen supplementation. Pending reassessment in the morning and ability to pain oxygen for home vs return to [facility] possibility for discharge less than 2 midnight stay.
[2019-03-17] MEDS ORDERED: NS 1,000 ML IV SCH (05:30)
[2019-03-17 08:11] LABS: PLATELET COUNT 211 10^3/uL (150-400)
[2019-03-17] MEDS: ENOXAPARIN 40 MG/0.4 ML SYR SC SCH (08:39)
--- NOTE | 2019-03-17 13:33 | HOSPPROG ---
Hospitalist Progress Note Assessment/Plan: This is an 83-year-old female past medical history significant for remote breast cancer status post mastectomy, anemia, SIADH and more recently multiple hospitalizations for was initially thought to be a pneumonia and associated hypoxia. First encounter, chart reviewed. *hypoxia w recurrent cough -likely r/t pneumonitis and ILD -will get ST to see to do a swallow evaluation -appreciate ID's involvement -Pulmonology to see her-saw her on last admission -CM spoke with [facility] and on dc from there she was stable on room air *inflammatory lung disease vs pna - chest x-ray remains unchanged - mild leukocytosis - will hold abx and steroids *SIADH - Sodium 131 *hypotension -bp is low but she is asymptomatic *chronic anemia -stable *hx breast ca - s/p mastectomy *underweight w a BMI of 19.6 -concerned she isn't eating much, ate a yogurt w banana and half a scrambled egg when I evaluated her at 15:00 -will ask dietary to see, get a calorie count *dvt prophylaxis plan: ID and Pulmonology to see. Concerned she isn't eating and may have some anxiety.CM to get dc summary from [facility]. She will require another midnight stay for further evaluation, her blood pressure is low, and she is very concerned her cough returned. Subjective: Katlin said she was fine at and then she was only able to last one day at home. Objective: Vital Signs Temp Pulse Resp BP Pulse Ox 36.4 C 89 16 95/46 L 90 L 03/17/19 11:03 03/17/19 11:03 03/17/19 11:03 03/17/19 11:03 03/17/19 11:03 Laboratory Results 03/17/19 08:05 03/17/19 08:05 03/16/19 03/17/19 03/18/19 05:59 05:59 05:59 Intake Total 450 Output Total 125 150 Balance 325 -150 - Physical Exam Constitutional: no apparent distress, other (thin) Eyes: PERRL Ears, Nose, Mouth, Throat: hard of hearing Cardiovascular: regular rate and rhythym Respiratory: no respiratory distress, rhonchi (bases) Skin: warm Musculoskeletal: generalized weakness Neurologic: AAOx3 Psychiatric: interacting appropriately ICD10 Worksheet Patient Problems: Problems Problem Status Onset Adult failure to thrive syndrome Acute Cough Acute Generalized weakness Acute Hyponatremia Acute Hypoxia Acute Malignant tumor of breast Acute Pneumonia Acute
--- NOTE | 2019-03-17 14:12 | PDCONSULT ---
[employer] Supervisor Note: Infectious Diseases Consult Note Impression: 83-year-old woman with hypoxia and objective findings of bronchiectasis in the lower lobes and probable pulmonary fibrosis. Overall her chest CT between 02/23 and 03/06 shows considerable improvement although her chest x-ray is unchanged which likely reflects underlying chronic interstitial lung disease. Do not suspect a new acute pulmonary infection resulting in rehospitalization. His likely that she has chronic lung disease and has reached her threshold of compensation and may require oxygen supplementation going forward. Continue to observe without additional antibiotics. Extensive evaluation for possible infectious causes of her lung disease on previous admission remain negative. It is feasible that she has pulmonary TAYLOR infection with 9 days of incubation in adequate to call that a negative result; typically TAYLOR takes 14 or more days to grow in the lab. 1. Hypoxia, likely secondary to interstitial lung disease with bronchiectasis 2. Leukocytosis, unclear cause but does not have an infectious syndrome Plan: 1. Continue to observe off antibiotics 2. Swallow study to evaluate for possible component of aspiration resulting in acute changes 3. Agree with pulmonary re-evaluation Edvin Carballo MD Infectious Diseases Chief Complaint: Generalized body aches Requesting Provider: Loreta Bowden Reason for Referral: Consultation was requested by Loreta Bowden regarding antimicrobial management. HPI: 83-year-old woman presented to the hospital approximately 1 day after being discharged from rehab where she was improving after her recent hospitalization. She was not requiring supplemental oxygen at rehab and was progressing quite well. Upon returning to her home she developed generalized body aches which she describes as "flu-like" but she does not recognize symptoms of dyspnea or worsened cough upon returning home. Objective measurement reveals low oxygen saturations prompting admission. She notes no fevers, chills, or night sweats. She states that she returned home from rehab and by the early evening felt that she could not tolerate the worsening generalized body aches that she associates with a flu-like syndrome. She does state that while at rehab she slept in a bed with the head of the bed elevated and when she returned home she took a nap and laid flat for the nap. She notes no arthralgias or rash. Reviewed patient medical records in [facility], [facility] and [place] [facility] ([facility]). Past Medical/Surgical History: Bronchiectasis, possible pulmonary fibrosis Social History: Does not use tobacco products; Does not consume marijuana products; Drinks alcohol socially; Does not use any other drugs currently or in the past Family History: No family members with recurrent infections Allergies: Sulfa; penicillins Medications: Reviewed in medical record. ROS: 10 organ systems reviewed; pertinent positives and negatives listed in the HPI, all other organ systems negative. Physical Exam: VS: Reviewed Gen: No acute distress; Breathing comfortably with supplemental oxygen; Able to speak in complete sentences Eyes: No conjunctival injection; No scleral icterus HENT: No gross deformities Neck: No limitation in range of motion Pulm: Audible inspiratory sounds to the bases bilaterally; No wheeze, rhonchi, or rales CV: Normal S1 and S2; Regular rate and rhythm; No murmurs, rubs, or gallops; No lower extremity edema Abd: Not distended; Normo-active bowel sounds; Soft; Non-tender Skin: A full skin exam including exposed bilateral upper extremities, bilateral lower extremities to the knees, face, neck, abdomen, chest, and back performed; Skin intact, warm, with no rash MSK: Joints without erythema or edema; No gross limitation in range of motion Ext: No clubbing or cyanosis Neuro: Awake and alert Psych: Normal mood and blunted affect Labs/Imaging: All microbiology testing (culture and non-culture) reviewed in the medical record. Personally reviewed and interpreted the images of the following radiographs: Chest x-ray from 03/16 showing essentially unchanged interstitial lung markings. Discussed treatment/diagnostic testing and testing results with admitting provider(s). Ongoing monitoring for antimicrobial toxicity with: CBC, BMP, interval historical information, and interval physical exam. Paak-gw-acbm time with patient: 65 minutes with >50% of ffbq-ob-hezq time spent in counseling, patient education, and coordinating care. Counseling provided included the microbiology of pneumonia of bacterial, viral, and fungal etiologies, aspiration, bronchiectasis, pulmonary TAYLOR infection, expected time to resolution, natural history without treatment, and side effects of treatment.
--- NOTE | 2019-03-17 16:29 | ASMTCMCOM ---
CM Note CM Note Notes: Chart review conducted for dc planning purposes and case discussed with hospitalist. Pt was recently admitted to [facility] and discharged to [facility] where according to [facility] she was not requiring oxygen, but was still continuing with nebs. Pt discharged yesterday with [facility] PT who never met with her because she was back in [facility] ED the night of her discharge from SNF with hypoxia. Pt may need home O2 going forward. Pt's contact at [facility] is Melinda ([phone]). PT and OT are still pending on pt. Referral sent to [facility] as pt had already agreed to their services. CM to follow. D/C Plan: [facility] Date Signed: 03/17/2019 04:28 PM Electronically Signed By:Tracy Onofre RN
--- NOTE | 2019-03-17 17:26 | PDCONSULT ---
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 Degree of traction bronchiectasis suggest a level of chronicity longer than reported symptoms. I suspect this process has been going on for months to years and her lung function has finally declined to the point where she is symptomatic. Bronchoscopy with BAL and transbronchial biopsies may be helpful in determining whether this is a cellular NSIP, eosinophilic pneumonia but yield is significantly less for other types of lung disease. Given advanced age and risk benefit conversation patient has elected to proceed with bronchoscopy as opposed to video-assisted thoracic surgery with wedge resection biopsies. # acute on chronic hypoxemic respiratory failure # undifferentiated inflammatory fibrotic lung disease. See above # dyspnea exertion and shortness of breath PLAN # bronchoscopy with BAL and transbronchial biopsies tomorrow # NPO after midnight # limited autoimmune workup including repeat RF factor, anti CCP. DONNA screen last visit was negative. Will defer on myositis antibodies and do this workup as outpatient # hold DVT prophylaxis # counseled on supplement avoidance # unless acute worsening please hold antibiotics and steroids # close outpatient follow-up with pulmonary. I am happy to see patient in my clinic # other care per hospital Medicine I was asked by Loreta Bodwen of [facility] Medicine to evaluate this patient for acute on chronic hypoxemic respiratory failure and possible interstitial lung disease Chief complaint Shortness of breath HPI Jules is a very pleasant 83-year-old female with a remote history of breast cancer (no chemo or radiation) status post mastectomy has had 3 recent admissions for recurrent hypoxemic respiratory failure. She underwent extensive serologic evaluation by Infectious Disease all of which are negative her pending. She has been hospitalized twice in the last month with recurrent symptoms and abnormal imaging. Last admission she received antibiotics and steroids with some interval improvement. She continues to intermittently feel short of breath worse when she is at home in [place]. She states she believes her symptoms are due to life stressors as she lives with her son for 4 years and in January was told she had to move out and recently moved out to a new home. She denies any mold in the home. 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 She denies mold in the home denies any related occupational or environmental exposures. She takes various herbal supplements and cannot recall the names. She denies any rashes, new fevers, new chills, new arthralgias or myalgias. Allergies Aspirin, penicillin, sulfa antibiotics, seasonal allergies Medications A complete medication reconciliation has been performed. See EMR for details Past medical history Breast cancer status post mastectomy. 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 Was living with her son and I what now no longer living with him. Family history No family history of interstitial lung disease Review of systems A comprehensive 10 point review of systems was obtained is negative except as per HPI Vitals Afebrile, pulse 88, 99/62, respiratory rate 18 satting 96% on 2 L nasal cannula GEN: Resting in bed. Older than observed age NEURO: A&Ox3, CN 2-12 GI, appropriate fluency, normal mcc recall HEENT: PERRL, EOMI, MMM, OP clear NECK: supple, trachea midline CHEST normal shape, no pes excavatum CVS: rrr no m/r/g, no JVD appreciated PULM: Mild bilateral rales, no use of accessory muscles ABD: soft, NT, ND, NABS EXT: no swelling, no cyanosis, full ROM SKIN: warm, dry, intact, no rash PSYCH CAM negative, appropriate affect Labs Reviewed. Extensive infectious disease serologies negative 03/06/2019 C ANCA, p-ANCA negative, NPO negative, IN 3-, remote RF factor mildly positive. Has had mild peripheral eosinophilia 9 currently but she has been on steroids recently Imaging I personally reviewed interpreted radiographic images well as formal radiology reads 03/16/2019 CXR-fibrotic reticular changes, mild patchy infiltrates. Stable from prior. 03/08/2019 CT chest. Diffuse bilateral patchy ground-glass opacities, significant traction bronchiectasis and subpleural reticulations. Trivial bilateral pleural effusions.
[2019-03-17] MEDS: DIAZEPAM 5 MG TAB PO PRN (22:53)
[2019-03-18] MEDS: ENOXAPARIN 40 MG/0.4 ML SYR SC SCH (09:42)
--- NOTE | 2019-03-18 10:15 | PCMIDPN ---
Assessment/Plan: Assessment: 83-year-old woman with hypoxia and objective findings for bronchiectasis in the lower lobes with probable pulmonary fibrosis. She continues to do fine without antimicrobial therapy. Very low suspicion that there is any infectious component to her pulmonary syndrome, including negative testing on her previous admission for Blastomyces urine antigen, Histoplasma urine antigen, Coccidioides antibodies, negative beta D glucan, negative ANCA testing, and negative DONNA screen. Although she may have a component of periodic aspiration contributing to her hypoxic episodes, it does seem likely that she has also pooling mucous in her lower lobes that eventually manifest with hypoxia. Supported by the fact that she is increasingly bringing up sputum with cough with breathing treatments. 1. Hypoxia, likely secondary to interstitial lung disease with bronchiectasis 2. Leukocytosis, unclear cause; no infectious etiology suspected Plan: 1. Continue to observe off antibiotics 2. CBC with differential 5.31 Edvin Carballo MD Infectious Diseases 03/18/19 10:10 Subjective: No fever or chills in the past 24-hours. Tolerating oral diet with solids and liquids. No diarrhea, nausea, or other GI symptoms. No rash. Appetite stable. Planned for bronchoscopy this afternoon. Bringing up more sputum with cough following breathing treatments. Objective: Vital Signs Temp Pulse Resp BP Pulse Ox 36.8 C 69 18 91/52 L 95 03/18/19 07:39 03/18/19 09:20 03/18/19 09:20 03/18/19 07:39 03/18/19 09:20 Laboratory Results 03/17/19 08:05 03/17/19 08:05 03/17/19 03/18/19 03/19/19 05:59 05:59 05:59 Intake Total 450 750 Output Total 125 150 400 Balance 325 600 -400 Discussed treatment/diagnostic testing and testing results with admitting provider(s). Personally reviewed interval laboratory results. - Physical Exam General Appearance: no apparent distress, non-toxic EENT: No scleral icterus Respiratory: crackles, No respiratory distress, No accessory muscle use, No wheezing Neck: full range of motion, supple Skin: No rash Neuro/Psych: alert, normal mood/affect, oriented x 3, No confused - Time Spent With Patient Time Spent with Patient: greater than 25 minutes Time Spent with Patient: Greater than 25 minutes spent on this patients care, greater than 50% of time spent counseling, educating, and coordinating care regarding the above mentioned plan. ICD10 Worksheet Patient Problems: Problems Problem Status Onset Adult failure to thrive syndrome Acute Cough Acute Generalized weakness Acute Hyponatremia Acute Hypoxia Acute Malignant tumor of breast Acute Pneumonia Acute
--- NOTE | 2019-03-18 11:43 | PDINTPN ---
[facility] Progress Note Assessment/Plan: ASSESSMENT 83-year-old female with acute on chronic hypoxemic respiratory failure and abnormal CT chest concerning for undifferentiated inflammatory fibrotic lung disease. 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 Degree of traction bronchiectasis suggest a level of chronicity longer than reported symptoms. I suspect this process has been going on for months to years and her lung function has finally declined to the point where she is symptomatic. Bronchoscopy with BAL and transbronchial biopsies may be helpful in determining whether this is a cellular NSIP, eosinophilic pneumonia but yield is significantly less for other types of lung disease. Given advanced age and risk benefit conversation patient has elected to proceed with bronchoscopy as opposed to video-assisted thoracic surgery with wedge resection biopsies. # acute on chronic hypoxemic respiratory failure # undifferentiated inflammatory fibrotic lung disease. See above # dyspnea exertion and shortness of breath PLAN # bronchoscopy with BAL and transbronchial biopsies today at 1300 # NPO until after procedure # follow up limited autoimmune workup including repeat RF factor, anti CCP. DONNA screen last visit was negative. # Will defer on myositis antibodies and do this workup as outpatient # okay to restart DVT ppx this evening # counseled on supplement avoidance # unless acute worsening please hold antibiotics and steroids # close outpatient follow-up with pulmonary. I am happy to see patient in my clinic # other care per hospital Medicine Subjective: Patient could bronchoscopy yesterday. Oxygenation relatively stable but still shortness of breath with significant ambulation. No new fevers, chills nausea vomiting or worsening cough. Objective: Vital Signs Temp Pulse Resp BP Pulse Ox 36.3 C 77 16 83/50 L 100 03/18/19 11:29 03/18/19 11:29 03/18/19 11:29 03/18/19 11:29 03/18/19 11:29 Laboratory Results 03/17/19 08:05 03/17/19 08:05 03/17/19 03/18/19 03/19/19 05:59 05:59 05:59 Intake Total 450 750 Output Total 125 150 400 Balance 325 600 -400 Physical Exam - Physical Exam General Appearance: other (Appears yet significantly younger than stated age) EENT: PERRL/EOMI, normal ENT inspection, pharynx normal, other (Nasal cannula tube in place) Neck: normal inspection, No thyromegaly Respiratory: lungs clear, other (Mild bibasilar rales), No accessory muscle use , No decreased breath sounds Cardiac/Chest: normal peripheral pulses, regular rate, rhythm, No edema Abdomen: non-tender, soft, No organomegaly Skin: normal color, warm/dry, No cyanosis, No rash Extremities: non-tender, No pedal edema, No swelling Neuro/Psych: no motor/sensory deficits, alert, normal mood/affect, oriented x 3 ICD10 Worksheet Patient Problems: Problems Problem Status Onset Adult failure to thrive syndrome Acute Cough Acute Generalized weakness Acute Hyponatremia Acute Hypoxia Acute Malignant tumor of breast Acute Pneumonia Acute
[2019-03-18] MEDS ORDERED: EPINEPHrine 1 MG/ML INJ ONE (12:47)
[2019-03-18] MEDS ORDERED: LIDOCAINE 2% JELLY 6 ML TOPICAL SYR ONE (12:47)
[2019-03-18] MEDS ORDERED: ALBUTEROL 3 ML DEYVIAL ONE (12:47)
[2019-03-18] MEDS ORDERED: NS 500 ML IV ONE (12:48)
[2019-03-18] MEDS ORDERED: OXYMETAZOLINE 30 ML NASAL SPRAY ONE (12:49)
[2019-03-18] MEDS ORDERED: fentaNYL 100 MCG/2 ML INJ ONE (12:50)
[2019-03-18] MEDS ORDERED: MIDAZOLAM 2 MG/2 ML VIAL ONE (12:50)
[2019-03-18] MEDS ORDERED: LIDOCAINE 1% 5 ML SDV ONE (12:56)
[2019-03-18] MEDS ORDERED: fentaNYL 100 MCG/2 ML INJ IVP ONE (13:45)
[2019-03-18] MEDS ORDERED: MIDAZOLAM 2 MG/2 ML VIAL IVP ONE (13:46)
--- NOTE | 2019-03-18 14:09 | SUROPNOTE ---
[facility] Operative Report - Surgery PROCEDURE NOTE: Flexible bronchoscopy with bronchoalveolar lavage and transbronchial biopsies Procedure Nuclear Medicine Tech S Danny Thomas MD Procedure: Flexible bronchoscopy with bronchoalveolar lavage and transbronchial biopsies Preoperative diagnosis: Pneumonia, respiratory failure Postoperative diagnosis: Pneumonia, respiratory failure Consent: Obtained from patient prior to procedure after explanation of the procedure, alternatives, risks, and benefits. Anesthesiologist NA Sedation Type: Moderate/conscious sedation. Total conscious sedation time 24 min Sedation Medications:fentanyl 125 mcg, versed 3 mg Medications: Topical 1% lidocaine: 12 cc via via bronchoscope: Procedure Summary: Time out was performed. The bronchoscope was then introduced via the nasopharynx into the trachea. Entire tracheobronchial tree was examined. The main rosendo appeared sharp. The right-sided airways were inspected first and were widely patent to the subsegmental level. The left- sided airways were then inspected and also appeared widely patent to the subsegmental level. Airway mucosa appeared normal throughout. Next 5 transbronchial biopsies were performed in the right lower and right middle lobes. Next, a formal bronchoalveolar lavage was performed in the lateral segment of the right middle lobe with instillation of 100 cc of NS and return of 35 cc of translucent pink cloudy fluid. Patient's vitals and cardiopulmonary physiology were continuously monitored by dedicated trained RN throughout the procedure. Total moderate sedation time was 24 min. Patient tolerated the procedure well without any immediate complications. A postprocedure chest x-ray was orders and pending at time of dictation EBL none Complications: None Impression: Interstitial lung disease Items to Follow-up: BAL fluid sent cell count, diff, Gram stain and culture, cytology for CD4:CD8, bacterial, mycobacterial and fungal cultures S Danny Thomas MD Pulmonary and Critical Care Medicine [phone]
--- NOTE | 2019-03-18 14:17 | PDMN ---
Medical Necessity Medical necessity: Change to inpt as of 03/17/19 at 16:43, meets inpt criteria er MD order and Pulmonary Disease GRG, 83 y/o admitted w/hypoxia w/recurrent cough, inflammatory lung disease vs pneumonia. Upgraded to inpt for persistent tachypnea, hypotension, and further med nec diagnostics needed including pulm and ID consults, bronch w/bx. Recent hx mult hospitalizations for what was thought to be pneumonia and associated hypoxia and despite mult courses of abx' s pt did not have signif improvement in resp symptoms. Est LOS>2MN for further diagnostics and ongoing management of above.
--- NOTE | 2019-03-18 14:26 | HOSPPROG ---
Hospitalist Progress Note Assessment/Plan: This is an 83-year-old female past medical history significant for remote breast cancer status post mastectomy, anemia, SIADH and more recently multiple hospitalizations for was initially thought to be a pneumonia and associated hypoxia. *hypoxia w recurrent cough -likely r/t pneumonitis and ILD/ bronchiectasis -ST following and will see again tomorrow - may need a video swallow evaluation - on room air *inflammatory lung disease vs pna - chest x-ray remains unchanged - mild leukocytosis - will hold abx and steroids *SIADH - Sodium 131 *hypotension -bp is low but she is asymptomatic *chronic anemia -stable *hx breast ca - s/p mastectomy *underweight w a BMI of 19.6 -dietary saw her today, really appreciate their involvement -calorie count in progress *dvt prophylaxis: LMWH on hold today for procedure plan: spoke w THERESA, she needs a better support system in the OP setting. They are looking at getting her connected w [facility]. Appreciate Pulm and ID in caring for Katlin. Subjective: Katlin cont to have a cough. Feeling fine. Objective: Vital Signs Temp Pulse Resp BP Pulse Ox 36.5 C 67 28 H 91/55 L 97 03/18/19 14:19 03/18/19 12:53 03/18/19 13:38 03/18/19 14:11 03/18/19 14:11 03/17/19 03/18/19 03/19/19 05:59 05:59 05:59 Intake Total 750 Output Total 400 Balance 750 -400 - Physical Exam Constitutional: not in pain, other (thin) Eyes: PERRL Ears, Nose, Mouth, Throat: hearing normal Respiratory: no respiratory distress Skin: warm Musculoskeletal: full muscle strength Neurologic: AAOx3 Psychiatric: interacting appropriately ICD10 Worksheet Patient Problems: Problems Problem Status Onset Adult failure to thrive syndrome Acute Cough Acute Generalized weakness Acute Hyponatremia Acute Hypoxia Acute Malignant tumor of breast Acute Pneumonia Acute
--- NOTE | 2019-03-18 15:26 | ASMTCMCOM ---
CM Note CM Note Notes: CM met with pt, she was recently discharged from [facility]. She was home less than 24 hours. Pt states she lives alone and is very independent. PT recommends home and OT, H/HC. Pt was set up with [facility] by SNF. THERESA brought in brochurefrom [facility] but pt concerned about how much they will take out of her Medicare. Pt also wanting to meet with Financial Counselor, wants to know how much this stay is going to cost her. THERESA sent email to to follow up with her tomorrow. DC Plan: Homecare/ [facility] (RN/PT) Date Signed: 03/18/2019 03:15 PM Electronically Signed By:Tova Flores RN
[2019-03-18] MEDS ORDERED: *PHM DO NOT USE-DEXAMETHASONE 0.2 MG/ML IV PED/NEWBORN SYR IV ONE (16:19)
[2019-03-18] MEDS ORDERED: DEXAMETHASONE 10 MG/ML VIAL IVP ONE (16:45)
[2019-03-18] MEDS: DIAZEPAM 5 MG TAB PO PRN (22:47)
[2019-03-18] MEDS ORDERED: MAGNESIUM HYDROXIDE 30 ML UDCUP PO PRN (22:50)
[2019-03-18] MEDS ORDERED: LACTULOSE 20 GM/30 ML UDCUP PO PRN (22:50)
[2019-03-18] MEDS ORDERED: POLYETHYLENE GLYCOL 3350 17 GM PKT PO PRN (22:50)
[2019-03-18] MEDS ORDERED: BISACODYL 10 MG SUPP PR PRN (22:50)
[2019-03-18] MEDS: SENNOSIDES/DOCUSATE SODIUM TAB PO SCH (23:34)
[2019-03-19 07:05] LABS: PLATELET COUNT 225 10^3/uL (150-400)
[2019-03-19] MEDS: SENNOSIDES/DOCUSATE SODIUM TAB PO SCH (08:39)
[2019-03-19] MEDS: ENOXAPARIN 40 MG/0.4 ML SYR SC SCH (08:39)
--- NOTE | 2019-03-19 09:08 | PDINTPN ---
Qa Consultant Progress Note Assessment/Plan: ASSESSMENT 83-year-old female with acute on chronic hypoxemic respiratory failure and abnormal CT chest initially concerning for atypical infection but extensive culture data and serologies have been negative. 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 Degree of traction bronchiectasis suggest a level of chronicity longer than reported symptoms. I suspect this process has been going on for months to years and her lung function has finally declined to the point where she is symptomatic. 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 Infectious etiologies ruled out. No other systemic symptoms. # acute on chronic hypoxemic respiratory failure # dyspnea exertion and shortness of breath PLAN # will continue dexamethasone to be continued at discharge 6 mg daily x7 days and 4 mg daily until seen by me in clinic. # will not start PJP ppx with dapsone until G6PD testing results. Bactrim contraindicated due to sulfa allergy # I will start PJP PPI X in clinic when I see her in 2-4 weeks # continue supplemental oxygen therapy. Will likely need at discharge given chronic hypoxemic respiratory failure. # other care per hospital Medicine LABS AND PATH 03/18/19 bronch and TBBx pending. BAL cell count and diff with 14% lymphocytes, no eos, no neutrophilia 03/18/19 CRP 143, ESR 29 03/17/19 RF 280, anti CCP, DONNA pending 03/06/2019 C ANCA, p-ANCA negative, NPO negative, KS 3-, remote RF factor mildly positive. Has had mild peripheral eosinophilia in past currently but she has been on steroids recently Imaging I personally reviewed interpreted radiographic images well as formal radiology reads 03/18/19 CXR no ptx after bronch, no stable infiltrates and fibrotic changes 03/16/2019 CXR-fibrotic reticular changes, mild patchy infiltrates. Stable from prior. 03/08/2019 CT chest. Diffuse bilateral patchy ground-glass opacities, significant traction bronchiectasis and subpleural reticulations. Trivial bilateral pleural effusions. 03/19/19 16:26 Subjective: Bronchoscopy performed yesterday without incident. Transbronchial biopsies, cytology pending. RF and CRP extremely elevated. Mild improvements this AM. Declined PFTs yesterday. No worsening cough, fevers, chills, nausea, vomiting, rash. Objective: Vital Signs Temp Pulse Resp BP Pulse Ox 36.4 C 66 16 100/58 L 93 03/19/19 08:00 03/19/19 08:00 03/19/19 08:00 03/19/19 08:00 03/19/19 08:00 Microbiology 03/18/19 13:22 Gram Stain - Final Bronchial Alveolar Lavage - Right Middle Lobe Laboratory Results 03/19/19 04:37 03/18/19 03/19/19 03/20/19 05:59 05:59 05:59 Intake Total 750 1400 Output Total 600 Balance 750 800 Physical Exam - Physical Exam General Appearance: alert, no apparent distress EENT: other (Nasal cannula tube in place, appears younger than stated age, normal oropharynx) Neck: full range of motion, supple, No thyromegaly Respiratory: other (Bibasilar rales, no tachypnea) Cardiac/Chest: normal peripheral pulses, regular rate, rhythm, No edema Abdomen: normal bowel sounds, non-tender Skin: normal color, warm/dry, No cyanosis Extremities: other (No arthralgias, no joint swelling no joint deformities, no tenderness) Neuro/Psych: no motor/sensory deficits, alert, normal mood/affect, oriented x 3 ICD10 Worksheet Patient Problems: Problems Problem Status Onset Adult failure to thrive syndrome Acute Cough Acute Generalized weakness Acute Hyponatremia Acute Hypoxia Acute Malignant tumor of breast Acute Pneumonia Acute
[2019-03-19] MEDS ORDERED: DEXAMETHASONE 4 MG TAB PO SCH (09:45)
[2019-03-19 15:24] VITALS: BP 123/63
--- NOTE | 2019-03-19 15:52 | PDHOMEO2F ---
Home Oxygen Face to Face Home Orders: I certify that a physician or a nurse practitioner or physician's dyer assistant has had a shhm-oo-rnmh encounter with this patient on the date of this order due to the diagnosis listed, which relates to the primary reason the patient requires home oxygen. Alternative treatments have been tried, or considered, and deemed ineffective. It is anticipated that supplemental oxygen will result in improvement with treatment. Home oxygen qualifying diagnosis: ILD SpO2 on room air (%): 86 Frequency of home oxygen needed: continuous Home oxygen liters per minute: 2 Home oxygen delivery device: nasal cannula Concentrator: Yes E-tanks for mobility and back up: Yes If ordering portable O2, is the patient mobile in the home?: Yes I certify that, based on these findings, the home oxygen is medically necessary for this patient for the following length of time. Length of time home oxygen needed: 3 months
--- NOTE | 2019-03-19 16:48 | ASMTLACE ---
CARMELA Acuity / Level of Answers: Yes Care: Did the patient have an inpatient admission? Comorbidities - select Answers: Other Notes: Hx of breast cancer all that apply # of Emergency department Answers: 3-4 visits in the last 6 months Score: 7 Date Signed: 03/19/2019 04:47 PM Electronically Signed By:Tova Flores RN
--- NOTE | 2019-03-19 16:54 | ASMTCMCOM ---
CM Note CM Note Notes: Pt has a dc order, CM left vm for Melinda at [facility] that pt discharging today instead of tomorrow. CM talked to pt and let her know of plan. Per RN, pt states that boyfriend is leaving for 4 months and she wants to see him. Pt also being set up with home O2, DC Plan: [facility]/ RN and PT Date Signed: 03/19/2019 04:50 PM Electronically Signed By:Tova Flores RN
--- NOTE | 2019-03-19 17:08 | PDIAF ---
- Diagnosis Diagnosis: ild Code Status: Do Not Resuscitate - Medication Management Discharge Medications: electronically signed and located in the Home Medication List. PICC Care - Routine: N/A - Orders Services needed: Home Care, Registered Nurse, Physical Therapy Home Care Face to Face: I certify that this patient was under my care and that I had the required spmo-id-ipwl encounter meeting the encounter requirements on the discharge day. My findings support the fact that the patient is homebound as defined in Home Care Face to Face Continued: CMS Chapter 7 Medicare Benefits Manual 30.1.1 , The condition of the patient is such that there exists a normal inability to leave home and consequently, leaving home would require a considerable and taxing effort. Isolation Type: None Diet Recommendation: no restrictions on diet Diet Texture: Regular Texture Diet, Thin Liquids, Meds Whole w/Liquids Additional Instructions: Call to set up follow up with Dr. Thomas in 2-4 weeks. Take the Dexamethasone 6mg daily for seven days, then take 4mg daily until seen in Dr. Thomas's office. - Follow Up Care Current Providers and Referrals: Rodriguez Thomas MD [Medical Doctor] - ADRY POWERS [Primary Care Provider] - As per Instructions
--- NOTE | 2019-03-19 21:44 | GDS ---
[f rep st] DISCHARGE SUMMARY DISCHARGE DIAGNOSES: 1. Autoimmune interstitial lung disease. 2. Acute on chronic hypoxemic respiratory failure. 3. Dyspnea on exertion. 4. Syndrome of inappropriate antidiuretic hormone secretion. 5. Hypotension. 6. Chronic anemia. CONSULTATIONS: Pulmonology. Infectious Disease. STUDIES AND PROCEDURES DONE: Bronchoscopy. PHYSICAL EXAMINATION: GENERAL: The patient is alert. VITAL SIGNS: Afebrile, 37.1. Pulse is 91. Respiratory rate is 16. Blood pressure is 123/63. She is saturating 92% on room air. I have seen a nd evaluated the patient on the day of discharge. HOSPITAL COURSE: The patient is an 83-year-old female who presents to the emergency room with compla ints of shortness of breath. She was evaluated and diagnosed with: 1. She is responding to treatment and will be sent home with supplemental oxygen. 2. Dyspnea on exertion. This is stable prior to disposition. 3. SIADH. 4. Hypotension. 5. Chronic anemia. 6. Underweight with a BMI of 19.6. DISPOSITION: The patient will be discharged home. PENDING STUDIES: Include bronchoscopy sample results. DISCHARGE MEDICATIONS: I have provided prescriptions for dexamethasone 6 mg daily for a total of 7 d ays and transitioned to dexamethasone 4 mg daily. I have also provided nebulizer treatments at the t ranjana of disposition. She will follow up with Pulmonology in 2 to 4 weeks. I spent greater than 35 mi nutes in the care, coordination, and management of this patient's disposition. /[id number]/MODL
--- NOTE | 2019-03-20 12:22 | ASMTDCNOTE ---
Case Management Discharge Discharge Order Complete? 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 CM spoke with Ashley at [facility] and confirmed receipt of dc orders. [facility] needed ok from hospitalist for start of care on Friday d/t staffing. CM confirmed with Hospitalist that was OK, gave RN verbal OK to start on Friday. Date Signed: 03/20/2019 12:21 PM Electronically Signed By:Tova Flores RN
--- NOTE | 2019-03-20 12:23 | ASDISCHSUM ---
Discharge Information Plan Status:Home with Home Health Medically Cleared to Leave: Discharge Date:03/19/2019 06:26 PM D/C Disposition:Home Health Service ADT D/C Disposition:Home, Routine, Self-Care Projected Discharge Date:03/19/2019 11:00 AM Transportation at D/C:Friend Discharge Delay Reason: Follow-Up Date:03/19/2019 11:00 AM Discharge Slot: Final Diagnosis: Placement Information Referral Type:*Home Health Care Services Referral ID:[id number] Provider Name:[facility] [address]: City:[place] Selection Factors: State:[place] Patient Contact Information Contact Name:KAROLINA Relationship:Son Address:[address] City:[place] Alternate Phone: State/Zip Code:[place] [address] Email: Financial Information Financial Class:Medicare Advantage Plans Primary Plan Desc:[facility] [employer] Primary Plan Number:[id number] Secondary Plan Desc: Secondary Plan Number: Assessment Information LACE LACE Acuity / Level of Answers: Yes Care: Did the patient have an inpatient admission? Comorbidities - select Answers: Other Notes: Hx of breast cancer all that apply # of Emergency department Answers: 3-4 visits in the last 6 months Score: 7 Date Signed: 03/19/2019 04:47 PM Electronically Signed By:Tova Flores RN [facility] CM Progress Note CM Note CM Note Notes: Chart review conducted for dc planning purposes and case discussed with hospitalist. Pt was recently admitted to [facility] and discharged to [facility] where according to [facility] she was not requiring oxygen, but was still continuing with nebs. Pt discharged yesterday with [facility] PT who never met with her because she was back in [facility] ED the night of her discharge from SNF with hypoxia. Pt may need home O2 going forward. Pt's contact at [facility] is Melinda ([phone]). PT and OT are still pending on pt. Referral sent to [facility] as pt had already agreed to their services. CM to follow. D/C Plan: [facility] Date Signed: 03/17/2019 04:28 PM Electronically Signed By:Tracy Dietz. GABI [facility] CM Progress Note CM Note CM Note Notes: CM met with pt, she was recently discharged from [facility]. She was home less than 24 hours. Pt states she lives alone and is very independent. PT recommends home and OT, H/HC. Pt was set up with [facility] by [facility]. CM brought in brochurefrom [facility] but pt concerned about how much they will take out of her Medicare. Pt also wanting to meet with Financial Counselor, wants to know how much this stay is going to cost her. CM sent email to to follow up with her tomorrow. DC Plan: Homecare/ [facility] (RN/PT) Date Signed: 03/18/2019 03:15 PM Electronically Signed By:Tova Flores RN [facility] CM Progress Note CM Note CM Note Notes: Pt has a dc order, CM left for Melinda at [facility] that pt discharging today instead of tomorrow. CM talked to pt and let her know of plan. Per RN, pt states that boyfriend is leaving for 4 months and she wants to see him. Pt also being set up with home O2, DC Plan: [facility]/ RN and PT Date Signed: 03/19/2019 04:50 PM Electronically Signed By:Tova Flores RN Case Management Discharge Plan Note Case Management Discharge Discharge Order Complete? 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 THERESA spoke with Ashley at [facility] and confirmed receipt of dc orders. [facility] needed ok from hospitalist for start of care on Friday d/t staffing. THERESA confirmed with Hospitalist that was OK, gave RN verbal OK to start on Friday. Date Signed: 03/20/2019 12:21 PM Electronically Signed By:Tova Flores RN Intervention Information Intervention Type:*IM-Signed Date of Service:03/19/2019 02:15 PM Patient Type:Inpatient Staff Member:Renea Slade Hours: Discipline: Severity: Comment:
== END 2019-03-19 18:26 | disposition home health service (06) | DRG 196 ==
LOC: EDUNIT# → F3E 23:04 → OBSVTOIN 03-17 16:43
PROVIDERS: ADMIT Family Medicine; ATTEND Internal Medicine
DX: J84.89 Other specified interstitial pulmonary diseases (principal); J96.21 Acute and chronic respiratory failure with hypoxia; E22.2 Syndrome of inappropriate secretion of antidiuretic hormone; Z68.1 Body mass index [BMI] 19.9 or less, adult; I95.9 Hypotension, unspecified; D53.9 Nutritional anemia, unspecified; Z85.3 Personal history of malignant neoplasm of breast; Z90.11 Acquired absence of right breast and nipple; Z66 Do not resuscitate
CPT/HCPCS: 82955-90; 92610-GN; 92611-GN; 97161-GP; 97165-GO; 97530-GO; 97535-GO; G0378; J0171; J1650; J2250; J3010; J7613

== ENCOUNTER → 2019-04-05 | Outpatient (CLI) | payer OTHER | LOC: FLAB 15:36 ==